=== PATIENT | male | born 1975 | race Two or more races ===

== ENCOUNTER 2020-03-24 09:53 | Emergency (ER) | payer OTHER ==
[~2020-03-24] VITALS: Ht 188 cm; Wt 92.0 kg
[2020-03-24 09:59] VITALS: BP 131/86
[2020-03-24] MEDS ORDERED: CYCL5TAB PO (10:14)
--- NOTE | 2020-03-24 10:14 | PHYS DOC ---
Past Medical History Past Medical History: No Pertinent History Past Surgical History: No Surgical History General Adult EDM: Chief Complaint: BACK PAIN - NO INJURY HPI: HPI: 44-year-old male presenting to the ED with low back spasms after injuring it yesterday. He describes a spasming of the muscle of the left side of his back which is worse with movement. It was worse this morning. He denies any dysuria polyuria hematuria. He has not lost bowel or bladder. He denies perineal paresthesias and is able to ambulate without any difficulty or weakness of the legs. The pain is nonradiating. He is not have abdominal pain. Review of systems negative for chest pain shortness of breath vomiting fevers chills. All other review of systems negative. ED course: 44-year-old male with back spasms and low back pain after injuring it. We will provide him with cyclobenzaprine and have him referred to his PCP within 1 to 2 days for follow-up. He can pursue outpatient physical therapy for further prevention and strengthening of the lower lumbar musculature. The patient has been examined and was not found to have an emergency medical c ondition. The patient was then discharged home in stable condition to follow up with their primary care physician over the next 1-2 days. They were to return if their symptoms worsened or if they were concerned for any reason. They were also instructed to return to the emergency department if they were unable to get the recommended and appropriate follow-up. [id number] discharge instructions and return precautions were given. Patient's questions were answered to their satisfaction. Patient is comfortable with plan. Heart Score: Risk Factors: Risk Factors: DM, Current or recent (<one month) smoker, HTN, HLP, family history of CAD, obesity. Risk Scores: Score 0 - 3: 2.5% MACE over next 6 weeks - Discharge Home Score 4 - 6: 20.3% MACE over next 6 weeks - Admit for Clinical Observation Score 7 - 10: 72.7% MACE over next 6 weeks - Early Invasive Strategies Physical Exam: PE: Constitutional: Well developed, well nourished, no acute distress, non-toxic appearance. [] HENT: Normocephalic, atraumatic, bilateral external ears normal, oropharynx moist, no oral exudates, nose normal. [] Eyes: PERRLA, EOMI, conjunctiva normal, no discharge. [] Neck: Normal range of motion, no tenderness, supple, no stridor. [] Cardiovascular:Heart rate regular rhythm, no murmur [] Lungs & Thorax: Bilateral breath sounds clear to auscultation [] Abdomen: Bowel sounds normal, soft, no tenderness, no masses, no pulsatile masses. [] Skin: Warm, dry, no erythema, no rash. [] Back: Tenderness along the paraspinal musculature more on the left than the right. Nontender midline. No step-offs abrasions lacerations or ecchymosis to the back. no CVA tenderness. [] Extremities: No tenderness, no cyanosis, no clubbing, ROM intact, no edema. [] 5 out of 5 strength in the lower extremities Neurologic: Alert and oriented X 3, normal motor function, normal sensory function, no focal deficits noted. [] Psychologic: Affect normal, judgement normal, mood normal. [] EKG: EKG: [] Radiology/Procedures: Radiology/Procedures: [] Course & Med Decision Making: Course & Med Decision Making Pertinent Labs and Imaging studies reviewed. (See chart for details) [] Dragon Disclaimer: Dragon Disclaimer: This electronic medical record was generated, in whole or in part, using a voice recognition dictation system. Departure Departure Impression: Primary Impression: Back pain Disposition: 01 DC HOME SELF CARE/HOMELESS Condition: STABLE Referrals: ESTELLA SMITH JR, MD (PCP) Patient Instructions: Back Pain, Adult Additional Instructions: Follow-up with your primary physician in 1 to 2 days. Return to the emergency department if you have any new or concerning findings. Scripts Cyclobenzaprine Hcl (CYCLOBENZAPRINE HCL) 5 Mg Tablet 1 TAB PO TID PRN PRN for PAIN, #10 TAB Prov: LAURE HOYT MD 03/24/20 LAURE HOYT MD Mar 24, 2020 10:14
== END 2020-03-24 10:19 | disposition home or self-care (01) ==
LOC: ER 09:53
DX: M54.5 Low back pain (principal); M62.830 Muscle spasm of back
CPT/HCPCS: 99283

== ENCOUNTER 2020-08-25 10:26 | Emergency (ER) | payer OTHER ==
[~2020-08-25] VITALS: Ht 188 cm; Wt 98.0 kg
[~2020-08-25 10:26] MED LIST: CYCL5TAB PO
[2020-08-25] MEDS: MECLIZINE HCL 12.5 MG TABLET. PO ONE (11:54)
[2020-08-25 11:56] LABS: CALCIUM 8.8 mg/dL (8.5-10.1); CREATININE 0.9 mg/dL (0.7-1.3); GFR 92.5
[2020-08-25 12:00] LABS: BASO % 0 % (0-3); EOS # 0.3 x10^3/uL (0.0-0.7); EOS % 4 % (0-3); HEMATOCRIT 43.9 % (39.0-53.0); HEMOGLOBIN 15.1 g/dL (13.0-17.5); LYMPH # 2.4 x10^3/uL (1.0-4.8); LYMPH % 31 % (24-48); MEAN CORPUSCULAR HEMOGLOBIN 29 pg (25-35); MEAN CORPUSCULAR HGB CONC 35 g/dL (31-37); MEAN CORPUSCULAR VOLUME 85 fL (79-100); MONO # 0.5 x10^3/uL (0.0-1.1); MONO % 7 % (0-9); NEUT # 4.4 x10^3/uL (1.8-7.7); NEUT % 57 % (31-73); PLATELET COUNT 238 x10^3/uL (140-400); RED BLOOD COUNT 5.19 x10^6/uL (4.30-5.70); RED CELL DISTRIBUTION WIDTH 13.4 % (11.5-14.5); WHITE BLOOD COUNT 7.6 x10^3/uL (4.0-11.0)
[2020-08-25 12:01] LABS: ALBUMIN 4.2 g/dL (3.4-5.0); ALBUMIN/GLOBULIN RATIO 1.2 (1.0-1.7); TOTAL BILIRUBIN 0.4 mg/dL (0.2-1.0); TOTAL PROTEIN 7.6 g/dL (6.4-8.2)
--- NOTE | 2020-08-25 12:17 | ED.ADGEN ---
Past Medical History Past Medical History: No Pertinent History Past Surgical History: No Surgical History Smoking Status: Current Every Day Smoker Alcohol Use: Occasionally General Adult EDM: Chief Complaint: DIZZY/LIGHT HEADED HPI: HPI: Patient is a 44 year old male, who presents emergency department with complaints of intermittent lightheadedness and dizziness with position changes for the last for 5 days. He denies any fever, cough, body aches, chest pain, palpitations, shortness of breath, vision changes, ringing in ears, sinus pressure, numbness, tingling, weakness, nausea, vomiting, diarrhea, abdominal pain. Patient denies any recent head injury or fall. He denies any difficulty swallowing or speaking. Patient reports that when he looks left he feels like his eyes shake. He complains of a generalized headache at this time that he describes as a pressure sensation, he currently rates his discomfort a 6 out of 10 on the pain scale, he denies any alleviating or exacerbating factors. Review of Systems: Review of Systems: Complete ROS is negative unless otherwise noted in HPI. Current Medications: Current Medications Medications (Trade) Dose Ordered Sig/Erwin Start Time Stop Time Status Last Admin Dose Admin Meclizine HCl (Antivert) 25 mg 1X ONCE 08/25/20 11:30 08/25/20 11:34 DC 08/25/20 11:54 25 MG Allergies: Allergies: Allergies Coded Allergies Type Severity Reaction Last Updated Verified No Known Drug Allergies 03/24/20 No Physical Exam: PE: See Above Constitutional: Well developed, well nourished, no acute distress, non-toxic appearance. [] HENT: Normocephalic, atraumatic, bilateral external ears normal, nose normal. [] Eyes: PERRLA, EOMI, conjunctiva normal, no discharge; no nystagmus present with leftward gaze Neck: Normal range of motion, no stridor. [] Cardiovascular:Heart rate regular rhythm Lungs & Thorax: Respirations even and unlabored, no retractions, no respiratory distress, lungs CTA Abdomen: soft, no tenderness Skin: Warm, dry, no erythema, no rash. [] Extremities: No cyanosis, ROM intact, no edema. [] Neurologic: Alert and oriented X 3, normal sensory, normal motor, strength 5/5 in all extremities, no focal deficits noted. [] Psychologic: Affect normal, judgement normal, mood normal. [] Current Patient Data: Labs: Laboratory Tests Test 08/25/20 10:40 White Blood Count 7.6 x10^3/uL (4.0-11.0) Red Blood Count 5.19 x10^6/uL (4.30-5.70) Hemoglobin 15.1 g/dL (13.0-17.5) Hematocrit 43.9 % (39.0-53.0) Mean Corpuscular Volume 85 fL (79-100) Mean Corpuscular Hemoglobin 29 pg (25-35) Mean Corpuscular Hemoglobin Concent 35 g/dL (31-37) Red Cell Distribution Width 13.4 % (11.5-14.5) Platelet Count 238 x10^3/uL (140-400) Neutrophils (%) (Auto) 57 % (31-73) Lymphocytes (%) (Auto) 31 % (24-48) Monocytes (%) (Auto) 7 % (0-9) Eosinophils (%) (Auto) 4 % (0-3) H Basophils (%) (Auto) 0 % (0-3) Neutrophils # (Auto) 4.4 x10^3/uL (1.8-7.7) Lymphocytes # (Auto) 2.4 x10^3/uL (1.0-4.8) Monocytes # (Auto) 0.5 x10^3/uL (0.0-1.1) Eosinophils # (Auto) 0.3 x10^3/uL (0.0-0.7) Basophils # (Auto) 0.0 x10^3/uL (0.0-0.2) Sodium Level 141 mmol/L (136-145) Potassium Level 4.0 mmol/L (3.5-5.1) Chloride Level 103 mmol/L (98-107) Carbon Dioxide Level 25 mmol/L (21-32) Anion Gap 13 (6-14) Blood Urea Nitrogen 13 mg/dL (8-26) Creatinine 0.9 mg/dL (0.7-1.3) Estimated GFR (Cockcroft-Gault) 92.5 BUN/Creatinine Ratio 14 (6-20) Glucose Level 205 mg/dL (70-99) H Calcium Level 8.8 mg/dL (8.5-10.1) Total Bilirubin 0.4 mg/dL (0.2-1.0) Aspartate Amino Transferase (AST) 24 U/L (15-37) Alanine Aminotransferase (ALT) 77 U/L (16-63) H Alkaline Phosphatase 77 U/L (46-116) Total Protein 7.6 g/dL (6.4-8.2) Albumin 4.2 g/dL (3.4-5.0) Albumin/Globulin Ratio 1.2 (1.0-1.7) Laboratory Tests 08/25/20 10:40 Laboratory Tests 08/25/20 10:40 Vital Signs: Vital Signs Date Time Temp Pulse Resp B/P (MAP) Pulse Ox O2 Delivery O2 Flow Rate FiO2 08/25/20 13:00 75 16 97 08/25/20 10:44 97.3 140/81 (100) Room Air 97.3 EKG: EKG: [][id number] rhythm with abnormal right axis deviation and incomplete right bundle branch block, rate 66, no STEMI, read by Dr. Vaz. Heart Score: C/O Chest Pain: No Risk Scores: Score 0 - 3: 2.5% MACE over next 6 weeks - Discharge Home Score 4 - 6: 20.3% MACE over next 6 weeks - Admit for Clinical Observation Score 7 - 10: 72.7% MACE over next 6 weeks - Early Invasive Strategies Radiology/Procedures: Radiology/Procedures: [] Course & Med Decision Making: Course & Med Decision Making Pertinent Labs and Imaging studies reviewed. (See chart for details) 44-year-old male who presented to the emergency department with complaints of intermittent lightheadedness with position changes for the last 4 to 5 days. Physical exam is concerning for BPPV. The patient was given 25 mg of meclizine in the emergency department and reported feeling better. Work-up included labs and monitoring, CBC was unremarkable, CMP revealed a blood glucose of 205, ALT of 77, otherwise unremarkable. Patient's vital signs are stable throughout his emergency department stay, EKG did not reveal any acute changes. Prescription was written for meclizine. I encouraged patient to change positions slowly, I encouraged him to follow-up with ear nose and throat for further evaluation, instructed him to return to the ER if his symptoms worsened or he developed a fever. Patient verbalized an understanding of home care, medications, follow-up, and return to ED instructions and was in agreement with the plan of care. [] Dragon Disclaimer: Dragon Disclaimer: This electronic medical record was generated, in whole or in part, using a voice recognition dictation system. Departure Departure Impression: Primary Impression: Benign positional vertigo Disposition: HOME / SELF CARE / HOMELESS Condition: STABLE Referrals: ESTELLA SMITH JR, MD (PCP) Patient Instructions: Benign Positional Vertigo Additional Instructions: Fill the prescription and take it as directed. Change positions slowly. Follow-up with the gear grinder, Dr. Caro for further evaluation, return to the ER if symptoms worsen or fever develops. Thank you for choosing [facility] today I like to wish you a Happy early Birthday! Scripts Meclizine Hcl (MECLIZINE HCL) 25 Mg Tablet 1 TAB PO PRN TID PRN for DIZZINESS for 10 Days, #30 TAB 0 Refills Prov: ANCA WESTFALL TOOL DESIGN ENGINEER 08/25/20 Problem Qualifiers Primary Impression: Benign positional vertigo Laterality: left Qualified Codes: H81.12 - Benign paroxysmal vertigo, left ear ANCA WESTFALL TOOL DESIGN ENGINEER Aug 25, 2020 12:17
--- NOTE | 2020-08-25 12:23 | EKG ---
[facility] [address] [place] [address] Test Date: 2020-08-25 Test Time: 10:34:01 Pat Name: LARY WHITING Department: Room: Gender: Offset Pressman: : 1975 Requested By: ANCA WESTFALL Order Number: [id number] Reading MD: Measurements Intervals [place] Rate: 66 P: 139 AK: 182 QRS: 168 QRSD: 82 T: 160 QT: 364 QTc: 383 Interpretive Statements SINUS RHYTHM ABNORMAL RIGHT AXIS DEVIATION INCOMPLETE RIGHT BUNDLE BRANCH BLOCK CONSIDER RIGHT VENTRICULAR HYPERTROPHY QRS(T) CONTOUR ABNORMALITY CONSISTENT WITH HIGH LATERAL INFARCT AGE UNDETERMINED T ABNORMALITY IN INFERIOR LEADS ABNORMAL ECG RI6.02 No previous ECG available for comparison
[2020-08-25 13:00] VITALS: BP 115/67
[2020-08-25] MEDS ORDERED: MECL-75 PO (13:11)
== END 2020-08-25 13:26 | disposition home or self-care (01) ==
LOC: ER 10:26
DX: R42 Dizziness and giddiness (principal); R51.9 Headache, unspecified; R20.2 Paresthesia of skin; F17.200 Nicotine dependence, unspecified, uncomplicated
CPT/HCPCS: 36415; 80053; 85025; 93005; 99284; J8597